=== PATIENT | male | born 1975 | race Caucasian/White ===

== ENCOUNTER 2020-05-19 18:18 | Emergency (ER) | payer SELFPAY ==
[~2020-05-19] VITALS: Ht 177.8 cm; Wt 74.8 kg
[2020-05-19 18:31] VITALS: Ht 177.8 cm; Wt 74.8 kg
[2020-05-19 20:28] VITALS: BP 165/71
== END 2020-05-19 20:28 | disposition home or self-care (01) ==
LOC: ED 18:18
DX: S91.002D Unspecified open wound, left ankle, subsequent encounter (principal); Z98.890 Other specified postprocedural states; V89.2XXD Person injured in unspecified motor-vehicle accident, traffic, subsequent encounter

== ENCOUNTER 2020-09-11 09:28 | Emergency (ER) | payer OTHER ==
[~2020-09-11] VITALS: Ht 180.3 cm; Wt 79.4 kg
[2020-09-11 09:33] VITALS: BP 150/88; Ht 180.3 cm; Wt 79.4 kg
== END 2020-09-11 10:20 | disposition home or self-care (01) ==
LOC: ED 09:28
DX: Z02.89 Encounter for other administrative examinations (principal)

== ENCOUNTER 2020-09-16 16:24 | Emergency (ER) | payer OTHER | END 2020-09-16 19:15 | LOC: ED 16:24 | DX: Z02.89 Encounter for other administrative examinations (principal) ==